=== PATIENT | male | born 2000 | race Caucasian/White ===

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

== ENCOUNTER → 2018-08-07 | Outpatient (CLI) | payer MEDICAID | LOC: SUPIMAGING 09:58 → EDSTATUS 15:58 | PROVIDERS: ATTEND Family Medicine | DX: S52.041A Displaced fracture of coronoid process of right ulna, initial encounter for closed fracture (principal); M25.421 Effusion, right elbow; M25.522 Pain in left elbow; E78.5 Hyperlipidemia, unspecified; R73.03 Prediabetes | CPT/HCPCS: 73080-PN ==